=== PATIENT | male | born 1945 | race Caucasian/White ===

== ENCOUNTER → 2017-01-07 | Outpatient (CLI) | payer OTHER ==
--- NOTE | 2017-01-08 05:56 | ECHOF ---
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 This was a technically adequate study. LV size, wall thickness and systolic function are normal, with an EF greater than 55%. The right ventricle is normal in size. The right atrial size is normal. There is mild aortic valve sclerosis. There is no evidence of aortic regurgitation. Mild mitral annular calcification present. There is trace mitral regurgitation. There is minimal mitral valve prolapse. Mild tricuspid regurgitation present. There is no evidence of pulmonary hypertension. The right ventricular systolic pressure, as measured by Doppler, is 21.31mmHg. There is no pulmonic regurgitation present. There is no pericardial effusion. CONCLUSIONS -------- 1. LV size, wall thickness and systolic function are normal, with an EF greater than 55%. 2. There is no pericardial effusion. 3. There is mild aortic valve sclerosis. 4. Mild mitral annular calcification present. 5. There is trace mitral regurgitation. 6. There is minimal mitral valve prolapse. 7. Mild tricuspid regurgitation present. 8. There is no evidence of pulmonary hypertension. 9. The right ventricular systolic pressure, as measured by Doppler, is 21.31mmHg. 10. There is no pulmonic regurgitation present. PUBLIC WELFARE WORKER: Shena Song RDCS
== END | disposition home or self-care (01) ==
LOC: RADECHMAIN 12:57
PROVIDERS: ATTEND Family Medicine
DX: I08.1 Rheumatic disorders of both mitral and tricuspid valves (principal)
CPT/HCPCS: 93306

== ENCOUNTER 2022-05-11 23:59 | Emergency (ER) | payer MEDICARE, OTHER ==
[2022-05-12 00:07] VITALS: PULSE 57; RESP 18
--- NOTE | 2022-05-12 00:15 | ED ---
General Adult HPI - General Chief complaint: Altered Mental Status Stated complaint: Altered Mental Time Seen by Provider: 05/12/22 00:02 Source: patient Mode of arrival: EMS Limitations: altered mental status - History of Present Illness Initial comments: Dictation was produced using playnik dictation software. please excuse any grammatical, word or spelling errors. Chief Complaint: 76-year-old male past medical history dyslipidemia, hypertension and PTSD presents to emergency department for altered mental status. History of Present Illness: 76-year-old male is brought in by EMS for confusion. Patient was brought in from home. Some clinical called EMS. According to nurse received report from EMS is been confused. He has been showing any signs of a symmetrical neurologic deficits. Patient states that he knows that he's been confused for the last couple of days. EMS reported that patient was having repetitive speech. Patient has any headache. Denies any pain complaints whatsoever. No numbness and paresthesias to the arms or legs. Denies any recent falls. The ROS documented in this emergency department record has been reviewed and confirmed by me. Those systems with pertinent positive or negative responses have been documented in the HPI. All other systems are other negative and/or noncontributory. PHYSICAL EXAM: General Impression: Alert and oriented x3, not in acute distress HEENT: Normocephalic atraumatic, extra-ocular movements intact, pupils equal and reactive to light bilaterally, mucous membranes moist. Cardiovascular: Heart regular rate and rhythm Chest: Able to complete full sentences, no retractions, no tachypnea Abdomen: abdomen soft, non-tender, non-distended, no organomegaly Musculoskeletal: Pulses present and equal in all extremities, no peripheral edema Motor: no focal deficits noted Neurological: CN II-XII grossly intact, no focal motor or sensory deficits noted, NIH 0 Skin: Intact with no visualized rashes Psych: Normal affect and mood ED course: 76-year-old male presents to emergency department for altered mental status. Physical examination is benign. Vital signs are stable. Computed tomography scan of the brain was obtained. Computed tomography scan results were reviewed with me by radiologist showing subarachnoid acute hemorrhage in the right temporal parietal lobe. This is concerning for traumatic brain injury. More history was obtained from patient at the bedside 1:00 AM states that 2 days ago he did hit the right side of his head in the garage. Did not report any loss of consciousness. Patient does take Xarelto. Denies any headache at the bedside is stable appearing. Pending lab evaluation. Spoke with Magaly Garcia. Neuro trauma was notified. Spoke with Dr. Marroquin of the ED at [place] and also Dr. Jones of trauma or willing to accept the patient. They did not feel the patient needed anticoagulation reversal. Considering that trauma was 2 days ago and patient stable and well-appearing. Patient is agreeable to disposition. Patient will be transferred to [facility]. EKG interpretation: Ventricular rate 77, sinus bradycardia,. 173, care is 12, QTc 447. No NV prolongation, no QTC prolongation, no ST or T-wave changes noted. No old EKG for comparison. Overall, this EKG is unremarkable - Related Data Home Medications Medication Instructions Recorded Confirmed Aspirin EC [Ecotrin Low Dose] 81 mg PO DAILY 01/03/15 01/03/15 Multivitamin [Men's Multi-Vitamin] 1 each PO DAILY 01/03/15 01/03/15 Pravastatin Sodium [Pravachol] 80 mg PO DAILY 01/03/15 01/03/15 atenoloL [Tenormin] 25 mg PO DAILY 01/03/15 01/03/15 lisinopriL [Zestril] 10 mg PO DAILY 01/03/15 01/03/15 Previous Rx's Medication Instructions Recorded LORazepam [Ativan] 0.5 mg PO TID PRN #30 tab 01/04/15 Rivaroxaban [Xarelto] 20 mg PO W/SUPPER #30 tab 01/04/15 Allergies Allergy/AdvReac Type Severity Reaction Status Date / Time Sulfa (Sulfonamide AdvReac Rash/Hives Verified 05/12/22 00:07 Antibiotics) Review of Systems ROS Statement: Those systems with pertinent positive or pertinent negative responses have been documented in the HPI. ROS Other: All systems not noted in ROS Statement are negative. Past Medical History Past Medical History: Hyperlipidemia, Hypertension Additional Past Medical History / Comment(s): 01-03-15 NEW ONSET AFIB, KIDNEY STONES,DIVERTICULITIS, NOSE BROKEN TWICE, COLLARBONE BROKEN X2, LT HAND BROKEN, BOWEL OBSTRUCTION. STENT LAD. History of Any Multi-Drug Resistant Organisms: None Reported Past Surgical History: Adenoidectomy, Heart Catheterization With Stent, Tonsillectomy Additional Past Surgical History / Comment(s): LT KIDNEY INURY(TORE KIDNEY IN FALL) Past Anesthesia/Blood Transfusion Reactions: No Reported Reaction Date of Last Stent Placement:: 06-05-01 Past Psychological History: No Psychological Hx Reported Past Alcohol Use History: Daily Past Drug Use History: None Reported - Past Family History Father Additional Family Medical History / Comment(s): AT AGE 88 FROM [place] Mother Family Medical History: Cancer, Diabetes Mellitus Additional Family Medical History / Comment(s): COLON CANCER, PACEMAKER, FALLS BROKE VERTEBRE IN NECK General Exam Limitations: altered mental status Course Vital Signs 05/12/22 00:04 Temperature 98.2 F Pulse Rate 57 L Respiratory 18 Rate Blood Pressure 137/86 O2 Sat by Pulse 99 Oximetry Medical Decision Making - Lab Data Result diagrams: 05/12/22 00:50 Lab Results 05/12/22 05/12/22 Range/Units 00:50 01:05 WBC 7.0 (3.8-10.6) k/uL RBC 3.89 L (4.30-5.90) m/uL Hgb 12.6 L (13.0-17.5) gm/dL Hct 38.0 L (39.0-53.0) % MCV 97.8 (80.0-100.0) fL MCH 32.4 (25.0-35.0) pg MCHC 33.1 (31.0-37.0) g/dL RDW 12.5 (11.5-15.5) % MPV 11.4 Urine Color Colorless Urine Appearance Clear (Clear) Urine pH 6.0 (5.0-8.0) Ur Specific [place] 1.004 (1.001-1.035) Urine Protein Negative (Negative) Urine Glucose (UA) Negative (Negative) Urine Ketones Negative (Negative) Urine Blood Negative (Negative) Urine Nitrite Negative (Negative) Urine Bilirubin Negative (Negative) Urine Urobilinogen <2.0 (<2.0) mg/dL Ur Leukocyte Esterase Negative (Negative) Critical Care Time Critical Care Time: Yes Total Critical Care Time: 33 Disposition Clinical Impression: Traumatic subarachnoid hemorrhage Disposition: OTHER INSTITUTION NOT DEFINED Condition: Serious Referrals: Neal Pham DO [Primary Care Provider] - 1-2 days Time of Disposition: 01:19 - Out of Hospital Transfer - Req. Specs Out of Hospital Transfer - Requested Specifics: Other Emergency Center ([facility])
--- NOTE | 2022-05-12 00:55 | CT ---
EXAMINATION TYPE: CT brain wo con DATE OF EXAM: 05/12/2022 COMPARISON: None HISTORY: ams CT DLP: 1090.1 mGycm Automated exposure control for dose reduction was used. There is some diffuse subarachnoid hemorrhage in the right posterior parietal lobe. There is no mass effect nor midline shift. Ventricles have normal size. Sella turcica is normal. Calvarium is intact. IMPRESSION: There is subarachnoid acute hemorrhage in the right temporoparietal lobe. Origin of the hemorrhage is not clear. The hemorrhage likely not related to aneurysm since there is no central involvement. This could be a traumatic hemorrhage. No evidence of subdural or epidural hemorrhage. Exam was discussed with emergency room attending staff at 1:00 AM.
[2022-05-12 01:09] LABS: Appearance,Urine Clear (Clear); Bilirubin,Urine Negative (Negative); Blood,Urine Negative (Negative); Color,Urine Colorless; Glucose,Urine (UA) Negative (Negative); Ketones,Urine Negative (Negative); Leukocyte Esterase,Urine Negative (Negative); Nitrite,Urine Negative (Negative); Protein,Urine Negative (Negative); Specific Gravity,Urine 1.004 (1.001-1.035); Urobilinogen,Urine <2.0 mg/dL (<2.0)
[2022-05-12 01:14] LABS: Basophils # (A) 0.1 k/uL (0-0.2); Basophils % (A) 1 %; Eosinophils # (A) 0.2 k/uL (0-0.7); Eosinophils % (A) 2 %; HGB 12.6 gm/dL (13.0-17.5); Lymphocytes # (A) 1.3 k/uL (1.0-4.8); Lymphocytes % (A) 18 %; MCH 32.4 pg (25.0-35.0); MCHC 33.1 g/dL (31.0-37.0); MCV 97.8 fL (80.0-100.0); Mean Platelet Volume 11.4; Monocytes # (A) 0.4 k/uL (0-1.0); Monocytes % (A) 6 %; Neutrophils % (A) 71 %; Platelet Count 122 k/uL (150-450); RBC 3.89 m/uL (4.30-5.90); RDW 12.5 % (11.5-15.5)
[2022-05-12 01:22] LABS: Partial Thromboplastin Time 28.5 sec (22.0-30.0); Prothrombin Time 11.2 sec (9.0-12.0)
[2022-05-12 01:27] LABS: Large Platelets Present
[2022-05-12 01:29] LABS: Calcium 8.7 mg/dL (8.4-10.2); Magnesium 2.3 mg/dL (1.6-2.3); Potassium 4.2 mmol/L (3.5-5.1)
[2022-05-12 01:46] VITALS: BP 98/54; TEMP 97.9
== END 2022-05-12 01:50 | disposition other institution (70) ==
LOC: EC 23:59
DX: S06.6X0A Traumatic subarachnoid hemorrhage without loss of consciousness, initial encounter (principal); R00.1 Bradycardia, unspecified; E78.5 Hyperlipidemia, unspecified; I10 Essential (primary) hypertension; Z20.822 Contact with and (suspected) exposure to COVID-19; Z79.899 Other long term (current) drug therapy; Z88.2 Allergy status to sulfonamides; W22.8XXA Striking against or struck by other objects, initial encounter; Y92.59 Other trade areas as the place of occurrence of the external cause
CPT/HCPCS: 36415; 70450; 80048; 81003; 83735; 85025; 85610; 85730; 87635; 93005; 99291

== ENCOUNTER → 2023-02-22 | Outpatient (CLI) | payer OTHER ==
--- NOTE | 2023-02-22 08:35 | MM ---
Reason for Exam: Clinical finding. Baseline mammogram. Indicated Problems: Pain of the left side (Focal) for 3 Month(s). Prior Study Comparison: Patient's first Mammogram. Tissue Density: There are scattered fibroglandular densities. Findings: Analyzed By CAD. There is flame-shaped subareolar density asymmetrically on the left compatible with mild gynecomastia. Small axillary tail lymph nodes noted on the right. No significant mass, suspicious microcalcification, or other discrete abnormality is seen. Overall Assessment: Incomplete: need additional imaging evaluation, BI-RAD 0 Management: Diagnostic Breast Ultrasound of the left breast. Particular attention laterally given abnormal outside CT findings per the patient. Electronically signed and approved by: Lila Evans M.D. Radiologist
--- NOTE | 2023-02-22 09:34 | USB ---
Reason for Exam: Clinical finding. Technique: Method: Whole Breast Handheld. Findings: The whole breast of the left breast, the axilla of both breasts and the retroareolar of both breasts were scanned. A complete US of all four quadrants of the breast, axilla, and retro-areolar region were reviewed. Comparison is to the contralateral right subareolar region. On the left, there is mild subareolar gynecomastia demonstrated. Otherwise, no solid or cystic lesion. No axillary lymphadenopathy. Overall Assessment: Benign, BI-RAD 2 Management: Clinical Management of the left breast. Further clinical management of mild benign left-sided gynecomastia. Additional further clinical management of any abnormality detected on outside CT. That exam is not available for review at the time of this appointment. Results were given to the patient verbally at the time of exam. Electronically signed and approved by: Lila Evans M.D. Radiologist
== END | disposition home or self-care (01) ==
LOC: RADMAMWWP 08:05
DX: N63.42 Unspecified lump in left breast, subareolar (principal); N63.31 Unspecified lump in axillary tail of the right breast
CPT/HCPCS: 77062; 77066

== ENCOUNTER 2023-07-22 10:38 | Emergency (ER) | payer OTHER ==
[2023-07-22 11:04] VITALS: RESP 18; TEMP 98
[2023-07-22 11:44] LABS: Basophils # (A) 0.1 k/uL (0-0.2); Basophils % (A) 1 %; Eosinophils # (A) 0.1 k/uL (0-0.7); Eosinophils % (A) 1 %; HCT 42.7 % (39.0-53.0); HGB 14.3 gm/dL (13.0-17.5); Lymphocytes # (A) 1.1 k/uL (1.0-4.8); Lymphocytes % (A) 13 %; MCH 32.6 pg (25.0-35.0); MCHC 33.5 g/dL (31.0-37.0); MCV 97.3 fL (80.0-100.0); Mean Platelet Volume 10.3; Monocytes # (A) 0.5 k/uL (0-1.0); Monocytes % (A) 6 %; Neutrophils # (A) 6.9 k/uL (1.3-7.7); Neutrophils % (A) 77 %; Platelet Count 132 k/uL (150-450); RBC 4.39 m/uL (4.30-5.90); RDW 13.4 % (11.5-15.5); WBC 8.9 k/uL (3.8-10.6)
[2023-07-22 11:48] LABS: ALT 26 U/L (4-49); AST 37 U/L (17-59); African American GFR (CKD) 73 (>60 ml/min/1.73 sqM); Albumin 4.7 g/dL (3.5-5.0); Alkaline Phosphatase 65 U/L (38-126); Anion Gap 15 mmol/L; Blood Urea Nitrogen 23 mg/dL (9-20); Calcium 9.4 mg/dL (8.4-10.2); Carbon Dioxide 21 mmol/L (22-30); Chloride 103 mmol/L (98-107); Glucose 79 mg/dL (74-99); Non-African American GFR(CKD) 64 (>60 ml/min/1.73 sqM); Potassium 4.5 mmol/L (3.5-5.1); Sodium 139 mmol/L (137-145); Total Bilirubin 0.7 mg/dL (0.2-1.3); Total Protein 8.4 g/dL (6.3-8.2)
--- NOTE | 2023-07-22 11:51 | XR ---
EXAMINATION TYPE: XR chest 2V DATE OF EXAM: 07/22/2023 COMPARISON: 01/04/2015 HISTORY: 77-year-old male with chest pain TECHNIQUE: PA and lateral views FINDINGS: Heart normal size. Aorta and pulmonary vasculature within normal limits. Old healed fracture deformit y distal right clavicle. Mild biapical pleural-parenchymal scarring, increased from 2015. Strandy ate lectasis at the lung bases. Hyperinflation. No consolidation or pleural effusion. PFO closure device. IMPRESSION: Hyperinflation may related to depth of inspiration underlying emphysema. No definite acute process.
[2023-07-22 11:54] LABS: INR 0.9 (<1.2); Partial Thromboplastin Time 23.8 sec (22.0-30.0); Prothrombin Time 10.3 sec (10.0-12.5)
--- NOTE | 2023-07-22 12:03 | ED ---
General Adult HPI - General Chief complaint: Recheck/Abnormal Lab/Rx Stated complaint: abnormal ekg-sent from drs Time Seen by Provider: 07/22/23 11:04 Source: patient, RN notes reviewed Mode of arrival: ambulatory Limitations: no limitations - History of Present Illness Initial comments: 77-year-old male presents emergency Department from PCPs office for evaluation of hyperkalemia. Patient states that he went and had some recent labs department today for redraw and stated that his potassium was high. I told him his EKG was abnormal but he denies any chest pain he states he had some left arm pain because he was very nervous and states he was shaking he again states he has no chest pain. Patient denies fevers chills patient offers no other com plaints. - Related Data Home Medications Medication Instructions Recorded Confirmed Aspirin EC [Ecotrin Low Dose] 81 mg PO DAILY 01/03/15 01/03/15 Multivitamin [Men's Multi-Vitamin] 1 each PO DAILY 01/03/15 01/03/15 Pravastatin Sodium [Pravachol] 80 mg PO DAILY 01/03/15 01/03/15 atenoloL [Tenormin] 25 mg PO DAILY 01/03/15 01/03/15 lisinopriL [Zestril] 10 mg PO DAILY 01/03/15 01/03/15 Previous Rx's Medication Instructions Recorded LORazepam [Ativan] 0.5 mg PO TID PRN #30 tab 01/04/15 Rivaroxaban [Xarelto] 20 mg PO W/SUPPER #30 tab 01/04/15 Allergies Allergy/AdvReac Type Severity Reaction Status Date / Time Sulfa (Sulfonamide AdvReac Rash/Hives Verified 07/22/23 10:59 Antibiotics) Review of Systems ROS Statement: Those systems with pertinent positive or pertinent negative responses have been documented in the HPI. ROS Other: All systems not noted in ROS Statement are negative. Past Medical History Past Medical History: Hyperlipidemia, Hypertension Additional Past Medical History / Comment(s): 01-03-15 NEW ONSET AFIB, KIDNEY STONES,DIVERTICULITIS, NOSE BROKEN TWICE, COLLARBONE BROKEN X2, LT HAND BROKEN, BOWEL OBSTRUCTION. STENT LAD. History of Any Multi-Drug Resistant Organisms: None Reported Past Surgical History: Adenoidectomy, Heart Catheterization With Stent, Tonsillectomy Additional Past Surgical History / Comment(s): LT KIDNEY INURY(TORE KIDNEY IN FALL) Past Anesthesia/Blood Transfusion Reactions: No Reported Reaction Date of Last Stent Placement:: 06-05-01 Past Psychological History: No Psychological Hx Reported Smoking Status: Never smoker Past Alcohol Use History: Daily Past Drug Use History: None Reported - Past Family History Father Additional Family Medical History / Comment(s): AT AGE 88 FROM [place] Mother Family Medical History: Cancer, Diabetes Mellitus Additional Family Medical History / Comment(s): COLON CANCER, PACEMAKER, FALLS BROKE VERTEBRE IN NECK General Exam Limitations: no limitations General appearance: alert, in no apparent distress Head exam: Present: atraumatic, normocephalic, normal inspection Eye exam: Present: normal appearance, PERRL, EOMI. Absent: scleral icterus, conjunctival injection, periorbital swelling ENT exam: Present: normal exam, normal oropharynx, mucous membranes moist Neck exam: Present: normal inspection, full ROM. Absent: tenderness, meningism us, lymphadenopathy Respiratory exam: Present: normal lung sounds bilaterally. Absent: respiratory distress, wheezes, rales, rhonchi, stridor Cardiovascular Exam: Present: regular rate, normal rhythm, normal heart sounds. Absent: systolic murmur, diastolic murmur, rubs, gallop, clicks GI/Abdominal exam: Present: soft, normal bowel sounds. Absent: distended, tenderness, guarding, rebound, rigid Neurological exam: Present: alert, oriented X3 Skin exam: Present: warm, dry, intact, normal color. Absent: rash Course Vital Signs 07/22/23 07/22/23 10:57 12:51 Temperature 98 F Pulse Rate 60 78 Respiratory 18 18 Rate Blood Pressure 171/80 124/75 O2 Sat by Pulse 98 98 Oximetry EKG Findings - EKG Comments: EKG Findings:: EKG performed at 11:19 sinus bradycardia with rate of 59 PA 167 QRS 92 QT/QTC 423/422 - EKG Results: EKG: interpreted by JOSEPH Medical Decision Making - Medical Decision Making Was pt. sent in by a medical professional or institution (, PA, BURGLAR ALARM INSTALLER, urgent care, hospital, or usp...) When possible be specific @ -PCP Did you speak to anyone other than the patient for history (EMS, parent, family, police, friend...)? What history was obtained from this source @ -No Did you review nursing and triage notes (agree or disagree)? Why? @ -I reviewed and agree with nursing and triage notes Were old charts reviewed (outside hosp., previous admission, EMS record, old EKG, old radiological studies, urgent care reports/EKG's, usp records)? Report findings @ -No old charts were reviewed Differential Diagnosis (chest pain, altered mental status, abdominal pain women, abdominal pain men, vaginal bleeding, weakness, fever, dyspnea, syncope, headache, dizziness, GI bleed, back pain, seizure, CVA, palpatations, mental health, musculoskeletal)? @ -Abnormal EKG, hyperkalemia EKG interpreted by me (3pts min.). @ -As above X-rays interpreted by me (1pt min.). @ -Chest x-ray shows no acute process CT interpreted by me (1pt min.). @ -None done U/S interpreted by me (1pt. min.). @ -None done What testing was considered but not performed or refused? (CT, X-rays, U/S, labs)? Why? @ -[None] What meds were considered but not given or refused? Why? @ -[None] Did you discuss the management of the patient with other professionals (professionals i.e. , PA, BURGLAR ALARM INSTALLER, lab, RT, psych nurse, social work case manager, collet making machine operator, teacher, delinquency prevention officer, bottle caser)? Give summary @ -[No] Was smoking cessation discussed for >3mins.? @ -[No] Was critical care preformed (if so, how long)? @ -[No] Were there social determinants of health that impacted care today? How? (Homelessness, low income, unemployed, alcoholism, drug addiction, transportation, low edu. Level, literacy, decrease access to med. care, custodial, rehab)? @ -[No] Was there de-escalation of care discussed even if they declined (Discuss DNR or withdrawal of care, Hospice)? DNR status @ -[No] What co-morbidities impacted this encounter? (DM, HTN, Smoking, COPD, CAD, Cancer, CVA, ARF, Chemo, Hep., AIDS, mental health diagnosis, sleep apnea, morbid obesity)? @ -[None] Was patient admitted / discharged? Hospital course, mention meds given and route, prescriptions, significant lab abnormalities, going to OR and other pertinent info. @ -[Discharged laboratory studies unremarkable patient is asymptomatic patient's prior abdominal may have been hemolyzed causing falls hyperkalemia. Patient will be discharged in stable condition] Undiagnosed new problem with uncertain prognosis? @ -[No] Drug Therapy requiring intensive monitoring for toxicity (Heparin, Nitro, Insulin, Cardizem)? @ -[No] Were any procedures done? @ -[No] Diagnosis/symptom? @ -[Recheck labs, well check] Acute, or Chronic, or Acute on Chronic? @ -[Acute Uncomplicated (without systemic symptoms) or Complicated (systemic symptoms)? @ -[Uncomplicated] Side effects of treatment? @ -[No] Exacerbation, Progression, or Severe Exacerbation? @ -[No] Poses a threat to life or bodily function? How? (Chest pain, USA, DE, pneumonia, PE, COPD, DKA, ARF, appy, cholecystitis, CVA, Diverticulitis, Homicidal, Suicidal, threat to staff... and all critical care pts) @ -[No] - Lab Data Result diagrams: 07/22/23 11:14 07/22/23 11:14 Lab Results 07/22/23 07/22/23 07/22/23 Range/Units 11:14 11:14 11:14 WBC 8.9 (3.8-10.6) k/uL RBC 4.39 (4.30-5.90) m/uL Hgb 14.3 (13.0-17.5) gm/dL Hct 42.7 (39.0-53.0) % MCV 97.3 (80.0-100.0) fL MCH 32.6 (25.0-35.0) pg MCHC 33.5 (31.0-37.0) g/dL RDW 13.4 (11.5-15.5) % Plt Count 132 L (150-450) k/uL MPV 10.3 Neutrophils % 77 % Lymphocytes % 13 % Monocytes % 6 % Eosinophils % 1 % Basophils % 1 % Neutrophils # 6.9 (1.3-7.7) k/uL Lymphocytes # 1.1 (1.0-4.8) k/uL Monocytes # 0.5 (0-1.0) k/uL Eosinophils # 0.1 (0-0.7) k/uL Basophils # 0.1 (0-0.2) k/uL PT 10.3 (10.0-12.5) sec INR 0.9 (<1.2) APTT 23.8 (22.0-30.0) sec Sodium 139 (137-145) mmol/L Potassium 4.5 (3.5-5.1) mmol/L Chloride 103 (98-107) mmol/L Carbon Dioxide 21 L (22-30) mmol/L Anion Gap 15 mmol/L BUN 23 H (9-20) mg/dL Creatinine 1.13 (0.66-1.25) mg/dL Est GFR (CKD-EPI)AfAm 73 (>60 ml/min/1.73 sqM) Est GFR (CKD-EPI)NonAf 64 (>60 ml/min/1.73 sqM) Glucose 79 (74-99) mg/dL Calcium 9.4 (8.4-10.2) mg/dL Magnesium 2.0 (1.6-2.3) mg/dL Total Bilirubin 0.7 (0.2-1.3) mg/dL AST 37 (17-59) U/L ALT 26 (4-49) U/L Alkaline Phosphatase 65 (38-126) U/L Troponin I (0.000-0.034) ng/mL Total Protein 8.4 H (6.3-8.2) g/dL Albumin 4.7 (3.5-5.0) g/dL 07/22/23 Range/Units 11:14 WBC (3.8-10.6) k/uL RBC (4.30-5.90) m/uL Hgb (13.0-17.5) gm/dL Hct (39.0-53.0) % MCV (80.0-100.0) fL MCH (25.0-35.0) pg MCHC (31.0-37.0) g/dL RDW (11.5-15.5) % Plt Count (150-450) k/uL MPV Neutrophils % % Lymphocytes % % Monocytes % % Eosinophils % % Basophils % % Neutrophils # (1.3-7.7) k/uL Lymphocytes # (1.0-4.8) k/uL Monocytes # (0-1.0) k/uL Eosinophils # (0-0.7) k/uL Basophils # (0-0.2) k/uL PT (10.0-12.5) sec INR (<1.2) APTT (22.0-30.0) sec Sodium (137-145) mmol/L Potassium (3.5-5.1) mmol/L Chloride (98-107) mmol/L Carbon Dioxide (22-30) mmol/L Anion Gap mmol/L BUN (9-20) mg/dL Creatinine (0.66-1.25) mg/dL Est GFR (CKD-EPI)AfAm (>60 ml/min/1.73 sqM) Est GFR (CKD-EPI)NonAf (>60 ml/min/1.73 sqM) Glucose (74-99) mg/dL Calcium (8.4-10.2) mg/dL Magnesium (1.6-2.3) mg/dL Total Bilirubin (0.2-1.3) mg/dL AST (17-59) U/L ALT (4-49) U/L Alkaline Phosphatase (38-126) U/L Troponin I <0.012 (0.000-0.034) ng/mL Total Protein (6.3-8.2) g/dL Albumin (3.5-5.0) g/dL Disposition Clinical Impression: Laboratory test, Well adult health check Disposition: HOME SELF-CARE Condition: Stable Additional Instructions: Please return to the Emergency Department if symptoms worsen or any other concerns. Is patient prescribed a controlled substance at d/c from ED?: No Referrals: [facility],Clinic [Primary Care Provider] - 1-2 days Time of Disposition: 12:37
[2023-07-22 13:09] VITALS: BP 124/75; PULSE 78
== END 2023-07-22 12:53 | disposition home or self-care (01) ==
LOC: EC 10:38
DX: Z00.00 Encounter for general adult medical examination without abnormal findings (principal); R00.1 Bradycardia, unspecified; E78.5 Hyperlipidemia, unspecified; I10 Essential (primary) hypertension; I48.91 Unspecified atrial fibrillation; Z88.2 Allergy status to sulfonamides; Z79.899 Other long term (current) drug therapy; Z79.82 Long term (current) use of aspirin
CPT/HCPCS: 36415; 71046; 80053; 83735; 84484; 85025; 85610; 85730; 93005; 99285

== ENCOUNTER 2023-10-10 09:44 | Emergency (ER) | payer OTHER ==
[2023-10-10 10:22] LABS: Basophils % (A) 0 %; Eosinophils % (A) 0 %; HCT 45.4 % (39.0-53.0); HGB 15.1 gm/dL (13.0-17.5); Lymphocytes # (A) 0.7 k/uL (1.0-4.8); Lymphocytes % (A) 9 %; MCH 33.1 pg (25.0-35.0); MCHC 33.1 g/dL (31.0-37.0); MCV 99.8 fL (80.0-100.0); Mean Platelet Volume 10.6; Monocytes # (A) 0.5 k/uL (0-1.0); Monocytes % (A) 6 %; Neutrophils # (A) 6.5 k/uL (1.3-7.7); Neutrophils % (A) 83 %; Platelet Count 122 k/uL (150-450); RBC 4.55 m/uL (4.30-5.90); WBC 7.8 k/uL (3.8-10.6)
[2023-10-10 10:33] LABS: INR 0.9 (<1.2); Partial Thromboplastin Time 23.1 sec (22.0-30.0); Prothrombin Time 10.5 sec (10.0-12.5)
[2023-10-10 10:46] LABS: ALT 29 U/L (4-49); AST 33 U/L (17-59); African American GFR (CKD) 74 (>60 ml/min/1.73 sqM); Albumin 4.9 g/dL (3.5-5.0); Alkaline Phosphatase 58 U/L (38-126); Anion Gap 12 mmol/L; Blood Urea Nitrogen 25 mg/dL (9-20); Calcium 9.6 mg/dL (8.4-10.2); Carbon Dioxide 22 mmol/L (22-30); Chloride 105 mmol/L (98-107); Glucose 131 mg/dL (74-99); Magnesium 1.9 mg/dL (1.6-2.3); Non-African American GFR(CKD) 64 (>60 ml/min/1.73 sqM); Potassium 4.7 mmol/L (3.5-5.1); Sodium 139 mmol/L (137-145); Total Bilirubin 1.2 mg/dL (0.2-1.3); Total Protein 8.5 g/dL (6.3-8.2)
--- NOTE | 2023-10-10 10:47 | ED ---
Syncope HPI - General Chief Complaint: Syncope Stated Complaint: fall-syncope Time Seen by Provider: 10/10/23 10:19 Source: patient, family, RN notes reviewed Mode of arrival: ambulatory Limitations: no limitations - History of Present Illness Initial Comments: This is a 78-year-old male who presents to the emergency department for a possible syncopal episode. States that he was in the kitchen last night on the phone, when he suddenly fell. The fall was not witnessed, his states that she was sleeping on the couch and as soon as she heard the fall, she went into the kitchen and found him on the ground. He was not unconscious or confused when she found him. This has happened to the patient before and is usually related to his blood pressure. Patient did not have any complaints prior to the episode and states that he essentially has no recollection of it. His states that they just got a new puppy and it is also possible that the puppy may have tripped him and he fell. His largest concern is the pain that he has along the left lower rib cage and lower back. He did hit the back of his head as well. Not taking any blood thinners. - Related Data Home Medications Medication Instructions Recorded Confirmed Aspirin EC [Ecotrin Low Dose] 81 mg PO DAILY 01/03/15 01/03/15 Multivitamin [Men's Multi-Vitamin] 1 each PO DAILY 01/03/15 01/03/15 Pravastatin Sodium [Pravachol] 80 mg PO DAILY 01/03/15 01/03/15 atenoloL [Tenormin] 25 mg PO DAILY 01/03/15 01/03/15 lisinopriL [Zestril] 10 mg PO DAILY 01/03/15 01/03/15 Previous Rx's Medication Instructions Recorded LORazepam [Ativan] 0.5 mg PO TID PRN #30 tab 01/04/15 Rivaroxaban [Xarelto] 20 mg PO W/SUPPER #30 tab 01/04/15 Lidocaine 5% Patch [Lidoderm 5% 1 patch TOPICAL DAILY PRN #30 patch 10/10/23 Patch] methocarbamoL [Robaxin-750] 1,500 mg PO TID PRN #30 tab 10/10/23 Allergies Allergy/AdvReac Type Severity Reaction Status Date / Time Sulfa (Sulfonamide AdvReac Rash/Hives Verified 03/04/24 09:48 Antibiotics) Review of Systems ROS Statement: Those systems with pertinent positive or pertinent negative responses have been documented in the HPI. ROS Other: All systems not noted in ROS Statement are negative. Past Medical History Past Medical History: Hyperlipidemia, Hypertension Additional Past Medical History / Comment(s): 01-03-15 NEW ONSET AFIB, KIDNEY STONES,DIVERTICULITIS, NOSE BROKEN TWICE, COLLARBONE BROKEN X2, LT HAND BROKEN, BOWEL OBSTRUCTION. STENT LAD. History of Any Multi-Drug Resistant Organisms: None Reported Past Surgical History: Adenoidectomy, Heart Catheterization With Stent, Tonsillectomy Additional Past Surgical History / Comment(s): LT KIDNEY INURY(TORE KIDNEY IN FALL) Past Anesthesia/Blood Transfusion Reactions: No Reported Reaction Date of Last Stent Placement:: 06-05-01 Past Psychological History: No Psychological Hx Reported Smoking Status: Never smoker Past Alcohol Use History: Daily Past Drug Use History: None Reported - Past Family History Father Additional Family Medical History / Comment(s): AT AGE 88 FROM [place] Mother Family Medical History: Cancer, Diabetes Mellitus Additional Family Medical History / Comment(s): COLON CANCER, PACEMAKER, FALLS BROKE VERTEBRE IN NECK General Exam Limitations: no limitations General appearance: alert, in no apparent distress Head exam: Present: atraumatic, normocephalic, normal inspection Eye exam: Present: normal appearance, PERRL, EOMI. Absent: scleral icterus, conjunctival injection, periorbital swelling Respiratory exam: Present: normal lung sounds bilaterally, chest wall tenderness (Left lower rib cage). Absent: respiratory distress, wheezes, rales, rhonchi, stridor Cardiovascular Exam: Present: regular rate, normal rhythm, normal heart sounds. Absent: systolic murmur, diastolic murmur, rubs, gallop, clicks Neurological exam: Present: alert, oriented X3, CN II-XII intact Psychiatric exam: Present: normal affect, normal mood Skin exam: Present: warm, dry, intact, normal color. Absent: rash Course Vital Signs 10/10/23 10/10/23 10/10/23 09:45 11:28 12:32 Temperature 97.5 F L 97.4 F L Pulse Rate 80 58 L 64 Respiratory 20 16 18 Rate Blood Pressure 137/80 133/79 128/78 O2 Sat by Pulse 96 100 99 Oximetry Medical Decision Making - Medical Decision Making This is a 78 year old male who presents to the emergency department for a possible syncopal episode. Was pt. sent in by a medical professional or institution? @ -No Did you speak to anyone other than the patient for history? @ -His provided the information about the patient not being confused or unconscious when she found him. Did you review nursing and triage notes? @ -Yes, and I agree, it is accurate with regards to the patient's symptoms. Were old charts reviewed? @ -No Differential Diagnosis? @ -Differential Syncope: Valvular disease, hypertrophic cardiomyopathy, pulmonary embolism, tamponade, tachycardia, bradycardia, OR, hypovolemia, hemorrhage, dissection, anemia, intracranial hemorrhage, seizure, hypoglycemia, carbon monoxide poisoning, this is not meant to be an all-inclusive list. EKG interpreted by me (3pts min.)? @ -EKG interpreted by me demonstrating the following: Sinus bradycardia. Ventricular rate 58 bpm, OK interval 159 ms, QRS duration 86 ms, QTc 418 ms. X-rays interpreted by me (1pt min.)? @ -Chest x-ray obtained, my interpretation identifies no localized consolidations or infiltrates. X-ray of the left rib cage and lumbar spine obtained. My interpretation identifies no acute fractures. CT interpreted by me (1pt min.)? @ -Computed tomography scan of the brain and c-spine obtained. My interpretation identifies no evidence of an acute intracranial hemorrhage, skull fracture, or cervical spine fracture. U/S interpreted by me (1pt. min.)? @ -Not obtained What testing was considered but not performed? (CT, X-rays, U/S, labs)? Why? @ -None What meds were considered but not given? Why? @ -None Did you discuss the management of the patient with other professionals? @ -No Did you reconcile home meds? @ -No Was smoking cessation discussed for >3mins.? @ -No Was critical care preformed (if so, how long)? @ -No Were there social determinants of health that impacted care today? How? (Homelessness, low income, unemployed, alcoholism, drug addiction, transportation, low edu. Level, literacy, decrease access to med. care, custodial, rehab)? @ -No Was there de-escalation of care discussed even if they declined? (Discuss DNR or withdrawal of care, Hospice)? @ -No What co-morbidities impacted this encounter? (DM, HTN, Smoking, COPD, CAD, Cancer, CVA, Hep., AIDS, mental health diagnosis, sleep apnea, morbid obesity)? @ -HLD, HTN Was patient admitted / discharged? @ -Discharged. Lab work unremarkable aside from signs of mild dehydration. Chest x-ray and x-ray of the left rib cage and lumbar spine obtained revealing no acute process. CT scan of the brain and C-spine obtained revealing no acute findings. Discussed with patient that this does not rule out the possibility of a smaller or hairline rib fracture, and treatment would otherwise not be any different. His pain was well-managed in the emergency department he was also given a liter bolus of IV fluids. We did discuss obtaining orthostatics and a urinalysis, however the patient had felt much better and did not feel that this was necessary and was comfortable with discharge home at that point. Prescription for Robaxin and lidocaine patches provided with dosing instructions reviewed. Also advised alternating with ibuprofen and Tylenol. Patient advised to take several deep breaths an hour despite the pain to reduce the risk of developing a secondary pneumonia. Also advised close follow-up with his primary care provider. Patient discharged home in stable condition. Undiagnosed new problem with uncertain prognosis? @ -None Drug Therapy requiring intensive monitoring for toxicity (Heparin, Nitro, Insulin, Cardizem)? @ -None Were any procedures done? @ -None Diagnosis/symptom? @ -Fall, rib contusion Acute, or Chronic, or Acute on Chronic? @ -Acute Uncomplicated (without systemic symptoms) or Complicated (systemic symptoms)? @ -Uncomplicated Side effects of treatment? @ -None Exacerbation, Progression, or Severe Exacerbation] @ -Not applicable Poses a threat to life or bodily function? @ -No Return precautions reviewed in depth, the patient is instructed to return to the emergency department with any new, worsening, or concerning symptoms. Patient verbalized understanding. This case was discussed in detail with the attending ED physician, Dr. Kyle Presentation, findings, and treatment plan discussed in detail as well. - Lab Data Result diagrams: 10/10/23 10:10 10/10/23 10:10 Lab Results 10/10/23 10/10/23 10/10/23 Range/Units 10:10 10:10 10:10 WBC 7.8 (3.8-10.6) k/uL RBC 4.55 (4.30-5.90) m/uL Hgb 15.1 (13.0-17.5) gm/dL Hct 45.4 (39.0-53.0) % MCV 99.8 (80.0-100.0) fL MCH 33.1 (25.0-35.0) pg MCHC 33.1 (31.0-37.0) g/dL RDW 13.0 (11.5-15.5) % Plt Count 122 L (150-450) k/uL MPV 10.6 Neutrophils % 83 % Lymphocytes % 9 % Monocytes % 6 % Eosinophils % 0 % Basophils % 0 % Neutrophils # 6.5 (1.3-7.7) k/uL Lymphocytes # 0.7 L (1.0-4.8) k/uL Monocytes # 0.5 (0-1.0) k/uL Eosinophils # 0.0 (0-0.7) k/uL Basophils # 0.0 (0-0.2) k/uL PT 10.5 (10.0-12.5) sec INR 0.9 (<1.2) APTT 23.1 (22.0-30.0) sec Sodium 139 (137-145) mmol/L Potassium 4.7 (3.5-5.1) mmol/L Chloride 105 (98-107) mmol/L Carbon Dioxide 22 (22-30) mmol/L Anion Gap 12 mmol/L BUN 25 H (9-20) mg/dL Creatinine 1.11 (0.66-1.25) mg/dL Est GFR (CKD-EPI)AfAm 74 (>60 ml/min/1.73 sqM) Est GFR (CKD-EPI)NonAf 64 (>60 ml/min/1.73 sqM) Glucose 131 H (74-99) mg/dL Calcium 9.6 (8.4-10.2) mg/dL Magnesium 1.9 (1.6-2.3) mg/dL Total Bilirubin 1.2 (0.2-1.3) mg/dL AST 33 (17-59) U/L ALT 29 (4-49) U/L Alkaline Phosphatase 58 (38-126) U/L Troponin I (0.000-0.034) ng/mL Total Protein 8.5 H (6.3-8.2) g/dL Albumin 4.9 (3.5-5.0) g/dL 10/10/23 Range/Units 10:10 WBC (3.8-10.6) k/uL RBC (4.30-5.90) m/uL Hgb (13.0-17.5) gm/dL Hct (39.0-53.0) % MCV (80.0-100.0) fL MCH (25.0-35.0) pg MCHC (31.0-37.0) g/dL RDW (11.5-15.5) % Plt Count (150-450) k/uL MPV Neutrophils % % Lymphocytes % % Monocytes % % Eosinophils % % Basophils % % Neutrophils # (1.3-7.7) k/uL Lymphocytes # (1.0-4.8) k/uL Monocytes # (0-1.0) k/uL Eosinophils # (0-0.7) k/uL Basophils # (0-0.2) k/uL PT (10.0-12.5) sec INR (<1.2) APTT (22.0-30.0) sec Sodium (137-145) mmol/L Potassium (3.5-5.1) mmol/L Chloride (98-107) mmol/L Carbon Dioxide (22-30) mmol/L Anion Gap mmol/L BUN (9-20) mg/dL Creatinine (0.66-1.25) mg/dL Est GFR (CKD-EPI)AfAm (>60 ml/min/1.73 sqM) Est GFR (CKD-EPI)NonAf (>60 ml/min/1.73 sqM) Glucose (74-99) mg/dL Calcium (8.4-10.2) mg/dL Magnesium (1.6-2.3) mg/dL Total Bilirubin (0.2-1.3) mg/dL AST (17-59) U/L ALT (4-49) U/L Alkaline Phosphatase (38-126) U/L Troponin I <0.012 (0.000-0.034) ng/mL Total Protein (6.3-8.2) g/dL Albumin (3.5-5.0) g/dL - Radiology Data Radiology results: report reviewed, image reviewed Disposition Clinical Impression: Fall, Contusion of rib on left side Disposition: HOME SELF-CARE Instructions (If sedation given, give patient instructions): Rib Contusion (ED) Additional Instructions: Return to the emergency department with any new, worsening, or concerning symptoms. Alternate with ibuprofen and Tylenol as needed for pain relief. You can take the Robaxin as 1-2 tablets up to 3-4 times daily. Be aware that the Robaxin may make you drowsy and you should avoid driving or operating machinery when taking them. You can also apply the lidocaine patches daily. Make sure you take several deep breaths an hour despite the pain to reduce the risk of de veloping a secondary pneumonia. Follow up with your primary care provider in 1- 2 days. Prescriptions: Lidocaine 5% Patch [Lidoderm 5% Patch] 1 patch TOPICAL DAILY PRN #30 patch PRN Reason: Pain methocarbamoL [Robaxin-750] 1,500 mg PO TID PRN #30 tab PRN Reason: Pain Is patient prescribed a controlled substance at d/c from ED?: No Referrals: [facility],Clinic [Primary Care Provider] - 1-2 days Time of Disposition: 12:14
--- NOTE | 2023-10-10 11:08 | CT ---
EXAMINATION TYPE: CT brain riaz dumont con DATE OF EXAM: 10/10/2023 COMPARISON: None available. HISTORY: Syncope. CT DLP: 1333.4 mGycm Automated exposure control for dose reduction was used. TECHNIQUE: CT scan of the head and cervical spine are performed without contrast. FINDINGS: There is no acute intracranial hemorrhage, mass effect, or midline shift identified. Mild hypoattenuation in the periventricular white matter is likely related to chronic ischemic small vess el change. There is no acute major vessel infarct. The ventricles and sulci are within normal limits in size. The globes are intact and the visualized sinuses are clear. Cervical spine is visualized in its entirety from C1 through upper thoracic levels and demonstrates s atisfactory alignment without evidence of acute fracture or dislocation. Prevertebral soft tissue ap pears within normal limits. The C1-C2 articulation is unremarkable. There are multilevel degenerati ve disc and facet changes which range from mild to moderate as well as uncovertebral joint changes. IMPRESSION: 1. No acute intracranial process with chronic changes as above. 2. Multilevel degenerative changes within the spine with no acute osseous abnormalities.
--- NOTE | 2023-10-10 11:19 | XR ---
EXAMINATION TYPE: XR chest 2V DATE OF EXAM: 10/10/2023 COMPARISON: NONE HISTORY: Syncope. TECHNIQUE: Frontal and lateral views of the chest are obtained. FINDINGS: There is no focal air space opacity, pleural effusion, or pneumothorax seen. The cardiac silhouette size is within normal limits. The osseous structures are intact. IMPRESSION: No acute cardiopulmonary process.
--- NOTE | 2023-10-10 11:21 | XR ---
Left rib series. DATE: 10/10/2023. COMPARISON: None available. CLINICAL HISTORY: Fall with left rib pain. IMPRESSION: The lungs appear clear. The cardiac silhouette and pulmonary vessels are within normal limits. No displaced rib fractures are seen.
--- NOTE | 2023-10-10 11:23 | XR ---
Three-view lumbar spine. DATE: 10/10/2023. COMPARISON: None available. CLINICAL HISTORY: Low back pain after fall. FINDINGS: The vertebral bodies are well aligned without evidence of fracture, subluxation or dislocation. The vertebral body heights are maintained. There is mild multilevel degenerative disc changes throughout the spine with moderate degenerative di sc space narrowing at L4-5 and more significant degenerative disc space narrowing at L5-S1. Multilevel degenerative facet changes are also seen. There is question of calcifications overlying the lower pole of the left kidney which may represent s tones versus bowel contents. IMPRESSION: Multilevel degenerative changes with no acute osseous abnormalities.
[2023-10-10] MEDS: LIDOCAINE 4% PATCH TOPICAL ONE (11:33)
[2023-10-10] MEDS: MORPHINE SULFATE 4 MG/ML SYRINGE IVP STA (11:34)
[2023-10-10] MEDS: SODIUM CHLORIDE 0.9% 1,000 ML IV STA (11:34)
[2023-10-10] MEDS: KETOROLAC 15 MG/ML 1 ML VIAL IVP STA (11:34)
[2023-10-10 12:00] VITALS: TEMP 97.4
[2023-10-10 13:08] VITALS: BP 128/78; PULSE 64; RESP 18
== END 2023-10-10 12:34 | disposition home or self-care (01) ==
LOC: EC 09:44
DX: S20.212A Contusion of left front wall of thorax, initial encounter (principal); R00.1 Bradycardia, unspecified; I10 Essential (primary) hypertension; E78.5 Hyperlipidemia, unspecified; E86.0 Dehydration; Z79.82 Long term (current) use of aspirin; Z79.899 Other long term (current) drug therapy; Z88.2 Allergy status to sulfonamides; W01.0XXA Fall on same level from slipping, tripping and stumbling without subsequent striking against object, initial encounter
CPT/HCPCS: 36415; 93005; 80053; 83735; 84484; 85025; 85610; 85730; 72100; 71100; 71046; 72125; 70450; 99285; 96374; 96375; J2270; J1885

== ENCOUNTER → 2024-01-10 | Outpatient (CLI) | payer OTHER ==
--- NOTE | 2024-01-10 11:09 | US ---
EXAMINATION TYPE: US carotid duplex BILAT DATE OF EXAM: 01/10/2024 COMPARISON: US CLINICAL INDICATION: Male, 78 years old with history of R55 SYNCOPE AND COLLAPSE; Syncope TECHNIQUE: Carotid duplex ultrasound examination. Indirect Doppler criteria was utilized. FINDINGS: EXAM MEASUREMENTS: RIGHT: Peak Systolic Velocity (PSV) cm/sec ----- Right CCA: 64.5 ----- Right ICA: 64.5 ----- Right ECA: 98.2 ICA/CCA ratio: 1.0 RIGHT: End Diastole cm/sec ----- Right CCA: 14.7 ----- Right ICA: 17.4 ----- Right ECA: 12.8 LEFT: Peak Systolic Velocity (PSV) cm/sec ----- Left CCA: 62.5 ----- Left ICA: 82.3 ----- Left ECA: 76.8 ICA/CCA ratio: 1.3 LEFT: End Diastole cm/sec ----- Left CCA: 17.5 ----- Left ICA: 24.1 ----- Left ECA: 10.9 VERTEBRALS (direction of flow): Right Vertebral: Antegrade Left Vertebral: Antegrade Rhythm: Arrhythmia [employer] TECHNICIAN NOTES: No significant stenosis seen IMPRESSION: Less than 50% stenosis with bilateral carotid bifurcations. Criteria for Assigning % of Stenosis / Diameter reduction (Estimation based on the indirect measurements of the internal carotid artery velocities (ICA PSV). 1. Normal (no stenosis)=ICA PSV < 125 cm/s: ratio < 2.0: ICA EDV<40 cm/s. 2. Less than 50% stenosis=ICA PSV < 125 cm/s: ratio < 2.0: ICA EDV<40 cm/s. 3. 50 to 69% stenosis=ICA PSV of 125 to 230 cm/s: ration 2.0 ? 4.0: ICA EDV 40-100 cm/s. 4. Greater than 70% stenosis to near occlusion= ICA PSV > 230 cm/s: ratio > 4.0: ICA EDV > 100 cm/s. 5. Near occlusion= ICA PSV velocities may be low or undetectable: variable ratio and ICA EDV. 6. Total occlusion=unable to detect flow.
== END | disposition home or self-care (01) ==
LOC: RADUSWWP 09:00
PROVIDERS: ATTEND Family Medicine
DX: I65.23 Occlusion and stenosis of bilateral carotid arteries (principal)
CPT/HCPCS: 93880

== ENCOUNTER 2024-05-19 00:07 | Emergency (ER) | payer OTHER ==
[2024-05-19 00:23] VITALS: TEMP 98.6
--- NOTE | 2024-05-19 00:32 | ED ---
Dizziness HPI - General Chief Complaint: Syncope Stated Complaint: Syncope Time Seen by Provider: 05/19/24 00:16 Source: patient, EMS, RN notes reviewed, old records reviewed Mode of arrival: EMS - History of Present Illness Initial Comments: This is a 78-year-old male with a syncopal event falling and hitting his head positive alcohol no chest pain mild headache no other complaints patient is a significantly poor historian secondary to alcohol intoxication MD Complaint: dizziness, near syncope (Syncope) -: days(s) Timing: sudden onset, constant Description: sense of movement History of Same: No History of Trauma: No Severity: severe Improves With: nothing Worsens With: nothing Associated Symptoms: syncope, weakness - Related Data Home Medications Medication Instructions Recorded Confirmed Aspirin EC [Ecotrin Low Dose] 81 mg PO DAILY 01/03/15 01/03/15 Multivitamin [Men's Multi-Vitamin] 1 each PO DAILY 01/03/15 01/03/15 Pravastatin Sodium [Pravachol] 80 mg PO DAILY 01/03/15 01/03/15 atenoloL [Tenormin] 25 mg PO DAILY 01/03/15 01/03/15 lisinopriL [Zestril] 10 mg PO DAILY 01/03/15 01/03/15 Previous Rx's Medication Instructions Recorded LORazepam [Ativan] 0.5 mg PO TID PRN #30 tab 01/04/15 Rivaroxaban [Xarelto] 20 mg PO W/SUPPER #30 tab 01/04/15 Lidocaine 5% Patch [Lidoderm 5% 1 patch TOPICAL DAILY PRN #30 patch 10/10/23 Patch] methocarbamoL [Robaxin-750] 1,500 mg PO TID PRN #30 tab 10/10/23 Allergies Allergy/AdvReac Type Severity Reaction Status Date / Time Sulfa (Sulfonamide AdvReac Rash/Hives Verified 10/10/23 09:48 Antibiotics) Review of Systems ROS Statement: Those systems with pertinent positive or pertinent negative responses have been documented in the HPI. ROS Other: All systems not noted in ROS Statement are negative. Past Medical History Past Medical History: Hyperlipidemia, Hypertension Additional Past Medical History / Comment(s): 01-03-15 [place] AFIB, KIDNEY STONES,DIVERTICULITIS, NOSE BROKEN TWICE, COLLARBONE BROKEN X2, LT HAND BROKEN, BOWEL OBSTRUCTION. STENT LAD. History of Any Multi-Drug Resistant Organisms: None Reported Past Surgical History: Adenoidectomy, Heart Catheterization With Stent, Tonsillectomy Additional Past Surgical History / Comment(s): LT KIDNEY INURY(TORE KIDNEY IN FALL) Past Anesthesia/Blood Transfusion Reactions: No Reported Reaction Date of Last Stent Placement:: 06-05-01 Past Psychological History: No Psychological Hx Reported Smoking Status: Never smoker Past Alcohol Use History: Daily Past Drug Use History: None Reported - Past Family History Father Additional Family Medical History / Comment(s): AT AGE 88 FROM [place] Mother Family Medical History: Cancer, Diabetes Mellitus Additional Family Medical History / Comment(s): COLON CANCER, PACEMAKER, FALLS BROKE VERTEBRE IN NECK General Exam General appearance: alert, in no apparent distress Head exam: Present: atraumatic, normocephalic, normal inspection Eye exam: Present: normal appearance, PERRL, EOMI. Absent: scleral icterus, conjunctival injection, periorbital swelling ENT exam: Present: normal exam, mucous membranes moist Neck exam: Present: normal inspection. Absent: tenderness, meningismus, lymphadenopathy Respiratory exam: Present: normal lung sounds bilaterally. Absent: respiratory distress, wheezes, rales, rhonchi, stridor Cardiovascular Exam: Present: regular rate, normal rhythm, normal heart sounds. Absent: systolic murmur, diastolic murmur, rubs, gallop, clicks GI/Abdominal exam: Present: soft, normal bowel sounds. Absent: distended, t enderness, guarding, rebound, rigid Extremities exam: Present: normal inspection, full ROM, normal capillary refill. Absent: tenderness, pedal edema, joint swelling, calf tenderness Back exam: Present: normal inspection Neurological exam: Present: alert, oriented X3, CN II-XII intact Psychiatric exam: Present: normal affect, normal mood Skin exam: Present: warm, dry, intact, normal color. Absent: rash Course Vital Signs 05/19/24 05/19/24 05/19/24 00:13 01:45 03:11 Temperature 98.6 F Pulse Rate 52 L 55 L 61 Respiratory 18 18 18 Rate Blood Pressure 128/76 97/58 87/69 O2 Sat by Pulse 97 92 L Oximetry 05/19/24 03:55 Temperature Pulse Rate 56 L Respiratory 17 Rate Blood Pressure 104/71 O2 Sat by Pulse 92 L Oximetry - Reevaluation(s) Reevaluation #1: 05/19/24 00:31 Medical records reviewed Reevaluation #2: 05/19/24 00:31 Patient symptoms unchanged Reevaluation #3: 05/19/24 02:29 Recurrent syncopal event Reevaluation #4: Was pt. sent in by a medical professional or institution (, [facility], [facility], urgent care, hospital, or fpc...) When possible be specific @ -no Did you speak to anyone other than the patient for history (EMS, parent, family, police, friend...)? What history was obtained from this source @ -no Did you review nursing and triage notes (agree or disagree)? Why? @ -agree Are old charts reviewed (outside hosp., previous admission, EMS record, old EKG, old radiological studies, urgent care reports/EKG's, fpc records)? Report findings @ -yes Differential Diagnosis (chest pain, altered mental status, abdominal pain women, abdominal pain men, vaginal bleeding, weakness, fever, dyspnea, syncope, headache, dizziness, GI bleed, back pain, seizure, CVA, palpatations, mental health, musculoskeletal)? @ -prior EKG interpreted by me (3pts min.). @ -yes X-rays interpreted by me (1pt min.). @ -yes negative for acute disease CT interpreted by me (1pt min.). @ -yes for subarachnoid hemorrhage U/S interpreted by me (1pt. min.). @ -no What testing was considered but not performed or refused? (CT, X-rays, U/S, labs)? Why? @ -none What meds were considered but not given or refused? Why? @ -none Did you discuss the management of the patient with other professionals (professionals i.e. , [facility], [facility] [employer] [facility], lab, RT, psych nurse, group social worker, crop picker, teacher, ski patrol officer, supportive employment case manager)? Give summary @ -no Was smoking cessation discussed for >3mins.? @ -no Was critical care preformed (if so, how long)? @ -yes31 Were there social determinants of health that impacted care today? How? (Homelessness, low income, unemployed, alcoholism, drug addiction, transportation, low edu. Level, literacy, decrease access to med. care, retirement, rehab)? @ -none Was there de-escalation of care discussed even if they declined (Discuss DNR or withdrawal of care, Hospice)? DNR status @ -no What co-morbidities impacted this encounter? (DM, HTN, Smoking, COPD, CAD, Cancer, CVA, ARF, Chemo, Hep., AIDS, mental health diagnosis, sleep apnea, morbid obesity)? @ -none Was patient admitted / discharged? Hospital course, mention meds given and route, prescriptions, significant lab abnormalities, going to OR and other pert inent info. @ - 78 male to ER who took a syncopal event with positive alcohol intoxication and fall. Positive subarachnoid hemorrhage . [facility] Undiagnosed new problem with uncertain prognosis? @ -no Drug Therapy requiring intensive monitoring for toxicity (Heparin, Nitro, Insulin, Cardizem)? @ -no Were any procedures done? @ -no Diagnosis/symptom? @ - traumatic fall with subarachnoid hemorrhage Acute, or Chronic, or Acute on Chronic? @ -Acute Uncomplicated (without systemic symptoms) or Complicated (systemic symptoms)? @ -Complicated Side effects of treatment? @ -no Exacerbation, Progression, or Severe Exacerbation? @ -exacerbation Poses a threat to life or bodily function? How? (Chest pain, USA, IA, pneumonia, PE, COPD, DKA, ARF, appy, cholecystitis, CVA, Diverticulitis, Homicidal, Suicidal, threat to staff... and all critical care pts) @ -yes significant traumatic injury Reevaluation #5: Differential Syncope: Valvular disease, hypertrophic cardiomyopathy, pulmonary embolism, tamponade, tachycardia, bradycardia, IA, hypovolemia, hemorrhage, dissection, anemia, intracranial hemorrhage, seizure, hypoglycemia, carbon monoxide poisoning, this is not meant to be an all-inclusive list. - Consultations Consultation #1: [facility] agrees to transfer EKG Findings - EKG Comments: EKG Findings:: EKG is sinus bradycardia 54 MI 173 QRS 100 QTc 435 - EKG Results: EKG: interpreted by [facility]HR[facility] Medical Decision Making - Medical Decision Making 78 male to ER who took a syncopal event with positive alcohol intoxication and fall. Positive subarachnoid hemorrhage - Lab Data Result diagrams: 05/19/24 00:59 05/19/24 00:59 Lab Results 05/19/24 05/19/24 05/19/24 Range/Units 00:59 00:59 00:59 WBC 8.2 (3.8-10.6) k/uL RBC 4.21 L (4.30-5.90) m/uL Hgb 13.9 (13.0-17.5) gm/dL Hct 41.3 (39.0-53.0) % MCV 98.1 (80.0-100.0) fL MCH 32.9 (25.0-35.0) pg MCHC 33.6 (31.0-37.0) g/dL RDW 13.2 (11.5-15.5) % Plt Count 111 L (150-450) k/uL MPV 10.4 Neutrophils % 76 % Lymphocytes % 13 % Monocytes % 6 % Eosinophils % 2 % Basophils % 0 % Neutrophils # 6.2 (1.3-7.7) k/uL Lymphocytes # 1.1 (1.0-4.8) k/uL Monocytes # 0.5 (0-1.0) k/uL Eosinophils # 0.2 (0-0.7) k/uL Basophils # 0.0 (0-0.2) k/uL PT 10.9 (10.0-12.5) sec INR 1.0 (<1.2) APTT 22.9 (22.0-30.0) sec D-Dimer 25.78 H (<0.60) mg/L FEU Sodium 140 (137-145) mmol/L Potassium 3.9 (3.5-5.1) mmol/L Chloride 109 H (98-107) mmol/L Carbon Dioxide 20 L (22-30) mmol/L Anion Gap 11 mmol/L BUN 22 H (9-20) mg/dL Creatinine 1.10 (0.66-1.25) mg/dL Est GFR (CKD-EPI)AfAm 75 (>60 ml/min/1.73 sqM) Est GFR (CKD-EPI)NonAf 65 (>60 ml/min/1.73 sqM) Glucose 97 (74-99) mg/dL Calcium 9.2 (8.4-10.2) mg/dL Magnesium 2.1 (1.6-2.3) mg/dL Total Bilirubin 0.4 (0.2-1.3) mg/dL AST 41 (17-59) U/L ALT 37 (4-49) U/L Alkaline Phosphatase 66 (38-126) U/L Troponin I (0.000-0.034) ng/mL Total Protein 7.1 (6.3-8.2) g/dL Albumin 4.3 (3.5-5.0) g/dL Serum Alcohol 246 H* mg/dL 05/19/24 Range/Units 00:59 WBC (3.8-10.6) k/uL RBC (4.30-5.90) m/uL Hgb (13.0-17.5) gm/dL Hct (39.0-53.0) % MCV (80.0-100.0) fL MCH (25.0-35.0) pg MCHC (31.0-37.0) g/dL RDW (11.5-15.5) % Plt Count (150-450) k/uL MPV Neutrophils % % Lymphocytes % % Monocytes % % Eosinophils % % Basophils % % Neutrophils # (1.3-7.7) k/uL Lymphocytes # (1.0-4.8) k/uL Monocytes # (0-1.0) k/uL Eosinophils # (0-0.7) k/uL Basophils # (0-0.2) k/uL PT (10.0-12.5) sec INR (<1.2) APTT (22.0-30.0) sec D-Dimer (<0.60) mg/L FEU Sodium (137-145) mmol/L Potassium (3.5-5.1) mmol/L Chloride (98-107) mmol/L Carbon Dioxide (22-30) mmol/L Anion Gap mmol/L BUN (9-20) mg/dL Creatinine (0.66-1.25) mg/dL Est GFR (CKD-EPI)AfAm (>60 ml/min/1.73 sqM) Est GFR (CKD-EPI)NonAf (>60 ml/min/1.73 sqM) Glucose (74-99) mg/dL Calcium (8.4-10.2) mg/dL Magnesium (1.6-2.3) mg/dL Total Bilirubin (0.2-1.3) mg/dL AST (17-59) U/L ALT (4-49) U/L Alkaline Phosphatase (38-126) U/L Troponin I <0.012 (0.000-0.034) ng/mL Total Protein (6.3-8.2) g/dL Albumin (3.5-5.0) g/dL Serum Alcohol mg/dL - Radiology Data Radiology results: report reviewed (Chest x-ray x-ray pelvis CT brain C-spine positive for subarachnoid hemorrhage, CT angio chest), image reviewed Critical Care Time Critical Care Time: Yes Total Critical Care Time: 31 Disposition Clinical Impression: Syncope, Alcohol intoxication, Fall, Subarachnoid hemorrhage Disposition: OTHER INSTITUTION NOT DEFINED Condition: Serious Is patient prescribed a controlled substance at d/c from ED?: No Referrals: Anna Gaines, PAC [Family Provider] - 1-2 days Time of Disposition: 02:30 - Out of Hospital Transfer - Req. Specs Out of Hospital Transfer - Requested Specifics: Other Emergency Center ([facility])
[2024-05-19] MEDS: SODIUM CHLORIDE 0.9% 1,000 ML IV STA ×2 (00:54→00:55)
[2024-05-19] MEDS: SODIUM CHLORIDE 0.9% 1,000 ML IV SCH (00:55)
[2024-05-19] MEDS: SODIUM CHLORIDE 0.9% 500 ML 500 ML IV STA (00:55)
[2024-05-19 01:15] LABS: Basophils % (A) 0 %; Eosinophils # (A) 0.2 k/uL (0-0.7); Eosinophils % (A) 2 %; HCT 41.3 % (39.0-53.0); HGB 13.9 gm/dL (13.0-17.5); Lymphocytes # (A) 1.1 k/uL (1.0-4.8); Lymphocytes % (A) 13 %; MCH 32.9 pg (25.0-35.0); MCHC 33.6 g/dL (31.0-37.0); MCV 98.1 fL (80.0-100.0); Mean Platelet Volume 10.4; Monocytes # (A) 0.5 k/uL (0-1.0); Monocytes % (A) 6 %; Neutrophils # (A) 6.2 k/uL (1.3-7.7); Neutrophils % (A) 76 %; Platelet Count 111 k/uL (150-450); RBC 4.21 m/uL (4.30-5.90); RDW 13.2 % (11.5-15.5); WBC 8.2 k/uL (3.8-10.6)
[2024-05-19 01:37] LABS: Partial Thromboplastin Time 22.9 sec (22.0-30.0); Prothrombin Time 10.9 sec (10.0-12.5)
--- NOTE | 2024-05-19 02:03 | XR ---
EXAM: XR Chest, 1 View CLINICAL HISTORY: ITS.REASON XR Reason: cp TECHNIQUE: Frontal view of the chest. COMPARISON: No relevant prior studies available. FINDINGS: Lungs: No consolidation or mass. Mildly prominent interstitial markings. Pleural space: No acute findings. Heart: Mild cardiomegaly. Bones/joints: No acute findings. IMPRESSION: Mildly prominent interstitial markings.
[2024-05-19 02:07] LABS: ALT 37 U/L (4-49); AST 41 U/L (17-59); African American GFR (CKD) 75 (>60 ml/min/1.73 sqM); Albumin 4.3 g/dL (3.5-5.0); Alkaline Phosphatase 66 U/L (38-126); Anion Gap 11 mmol/L; Blood Urea Nitrogen 22 mg/dL (9-20); Calcium 9.2 mg/dL (8.4-10.2); Carbon Dioxide 20 mmol/L (22-30); Chloride 109 mmol/L (98-107); Glucose 97 mg/dL (74-99); Magnesium 2.1 mg/dL (1.6-2.3); Non-African American GFR(CKD) 65 (>60 ml/min/1.73 sqM); Potassium 3.9 mmol/L (3.5-5.1); Sodium 140 mmol/L (137-145); Total Bilirubin 0.4 mg/dL (0.2-1.3); Total Protein 7.1 g/dL (6.3-8.2)
--- NOTE | 2024-05-19 02:09 | XR ---
EXAM: XR Pelvis, 1 or 2 Views CLINICAL HISTORY: ITS.REASON XR Reason: cp TECHNIQUE: Frontal view of the pelvis. COMPARISON: No previous studies. FINDINGS: Bones/joints: Mild osteoarthritic changes about the hip joints. The bony pelvis is unremarkable per. Moderate degenerative disc disease of the mid to lower lumbar spine. No acute fracture. No dislocation. Soft tissues: Unremarkable. Other findings: Pelvic fluid bolus are noted. Nonobstructing right renal calculi the largest of which measures 0.8 cm in extent. IMPRESSION: 1. Mild osteoarthritic changes about the hip joint. 2. Nonobstructing right renal calculi.
--- NOTE | 2024-05-19 02:24 | CT ---
EXAM: CT Head Without Intravenous Contrast CLINICAL HISTORY: ITS.REASON CT Reason: cp TECHNIQUE: Axial computed tomography images of the head/brain without intravenous contrast. CTDI is 45.2 mGy and DLP is 1072 mGy-cm. This CT exam was performed using one or more of the following dose reduction techniques: automated exposure control, adjustment of the mA and/or kV according to patient size, and/or use of iterative reconstruction technique. COMPARISON: No relevant prior studies available. FINDINGS: Brain: There is a trace amount of acute subarachnoid blood in the right temporal lobe sulci. There is a trace amount of subarachnoid blood in the left frontal lobe sulci. No significant white matter disease. No edema. Ventricles: Unremarkable. No ventriculomegaly. Bones/joints: Unremarkable. No acute fracture. Soft tissues: Unremarkable. Sinuses: Unremarkable as visualized. No acute sinusitis. Mastoid air cells: Unremarkable as visualized. No mastoid effusion. IMPRESSION: There is a trace amount of acute subarachnoid blood in the right temporal lobe and left frontal lobe sulci. Recommend short-term interval follow- up to evaluate for stability. EXAM: CT Cervical Spine Without Intravenous Contrast CLINICAL HISTORY: ITS.REASON CT Reason: cp TECHNIQUE: Axial computed tomography images of the cervical spine without intravenous contrast. CTDI is 10.4 mGy and DLP is 318.2 mGy-cm. This CT exam was performed using one or more of the following dose reduction techniques: automated exposure control, adjustment of the mA and/or kV according to patient size, and/or use of iterative reconstruction technique. COMPARISON: No relevant prior studies available. FINDINGS: Vertebrae: There is a minimally displaced left C2 transverse process fracture. Discs/spinal canal/neural foramina: No acute findings. No spinal canal stenosis. Soft tissues: Unremarkable. IMPRESSION: There is a minimally displaced left C2 transverse process fracture. <MYCVCSECTION> Communications: 05/19/24 02:24 Call Doctor Regarding Above results, called Dr. Fierro on 05/19 02:24 (-04:00)
[2024-05-19 02:25] LABS: Alcohol 246 mg/dL
--- NOTE | 2024-05-19 02:33 | CT ---
EXAM: CT Angiography Chest With Intravenous Contrast CLINICAL HISTORY: ITS.REASON CT Reason: pe TECHNIQUE: Axial computed tomographic angiography images of the chest with intravenous contrast. CTDI is 23 mGy and DLP is 365.8 mGy-cm. This CT exam was performed using one or more of the following dose reduction techniques: automated exposure control, adjustment of the mA and/or kV according to patient size, and/or use of iterative reconstruction technique. MIP reconstructed images were created and reviewed. COMPARISON: Chest x-ray of 05/19/2024. FINDINGS: Pulmonary arteries: Central pulmonary arteries are unremarkable. No pulmonary embolism. Aorta: Atherosclerotic disease of the thoracic aorta is noted. No thoracic aortic aneurysm. Lungs: Airway is normal. Minimal scarring and subsegmental atelectasis noted posteriorly in the mid lower lung zones. No mass. Pleural space: Unremarkable. No significant effusion. No pneumothorax. Heart: Cardiomegaly. No significant pericardial effusion. No evidence of RV dysfunction. Mediastinum: Small hiatal hernia and distal esophagitis. Thyroid: Thyroid gland is unremarkable. Bones/joints: No acute fracture. No dislocation. Soft tissues: Unremarkable. Lymph nodes: Unremarkable. No enlarged lymph nodes. Liver: Fatty liver. Adrenals: 1.5 cm probable right adrenal adenoma. Kidneys and ureters: Cluster of nonobstructing Right upper pole region of the left kidney. IMPRESSION: 1. No central or peripheral pulmonary emboli detected. 2. Atherosclerotic disease of the thoracic aorta. 3. Cardiomegaly. 4. Fatty liver. 5. Probable right adrenal adenoma. 6. Nonobstructing left renal calculi.
[2024-05-19 03:56] VITALS: BP 104/71; PULSE 56; RESP 17
== END 2024-05-19 04:09 | disposition other institution (70) ==
LOC: EC 00:07
CPT/HCPCS: 36415; 70450; 71045; 71275; 72125; 72170; 80053; 80320; 83735; 84484; 85025; 85379; 85610; 85730; 93005; 96360; 96361; 99291

== ENCOUNTER 2024-06-24 11:14 | Emergency (ER) | payer OTHER ==
[2024-06-24 11:23] VITALS: TEMP 98.6
[2024-06-24 11:31] LABS: Glucose,Whole Blood 90 mg/dL (70-110)
--- NOTE | 2024-06-24 11:44 | ED ---
General Adult HPI - General Chief complaint: Neuro Symptoms/Deficit Stated complaint: Possible stroke, previous fall and head injury Time Seen by Provider: 06/24/24 11:30 Source: patient, RN notes reviewed, old records reviewed Mode of arrival: ambulatory Limitations: no limitations - History of Present Illness Initial comments: This is a 78-year-old male who presents to the emergency department complaining of falling a week ago and cutting open his head on the right temporal region. Patient states he bled quite extensively. Patient states he has been having a problem for at least a year with syncopal episodes and that is what happened last week when he fell he had a syncopal episode. Patient states he does not know when his last tetanus was. Patient did not seek help after the fall even though he had a large laceration. Patient's states that last night he was a little confused and then he seemed to get better but this morning when he woke up he was very confused and complained of some tingling the left arm. Patient denies any neck pain. Patient states he has bilateral pain in the head in the temporal regions. Patient denies any other injury any extremity injury. Patient states he has had a intracranial hemorrhage in the past. Patient is not on any blood thinners. Currently patient is not confused and he is talking no rmally except slowly according to the . - Related Data Home Medications Medication Instructions Recorded Confirmed Aspirin EC [Ecotrin Low Dose] 81 mg PO DAILY 01/03/15 01/03/15 Multivitamin [Men's Multi-Vitamin] 1 each PO DAILY 01/03/15 01/03/15 Pravastatin Sodium [Pravachol] 80 mg PO DAILY 01/03/15 01/03/15 atenoloL [Tenormin] 25 mg PO DAILY 01/03/15 01/03/15 lisinopriL [Zestril] 10 mg PO DAILY 01/03/15 01/03/15 Previous Rx's Medication Instructions Recorded LORazepam [Ativan] 0.5 mg PO TID PRN #30 tab 01/04/15 Rivaroxaban [Xarelto] 20 mg PO W/SUPPER #30 tab 01/04/15 Lidocaine 5% Patch [Lidoderm 5% 1 patch TOPICAL DAILY PRN #30 patch 10/10/23 Patch] methocarbamoL [Robaxin-750] 1,500 mg PO TID PRN #30 tab 10/10/23 Allergies Allergy/AdvReac Type Severity Reaction Status Date / Time Sulfa (Sulfonamide AdvReac Rash/Hives Verified 06/24/24 11:23 Antibiotics) Review of Systems ROS Statement: Those systems with pertinent positive or pertinent negative responses have been documented in the HPI. ROS Other: All systems not noted in ROS Statement are negative. Past Medical History Past Medical History: Hyperlipidemia, Hypertension Additional Past Medical History / Comment(s): 01-03-15 NEW ONSET AFIB, KIDNEY STONES,DIVERTICULITIS, NOSE BROKEN TWICE, COLLARBONE BROKEN X2, LT HAND BROKEN, BOWEL OBSTRUCTION. STENT LAD. History of Any Multi-Drug Resistant Organisms: None Reported Past Surgical History: Adenoidectomy, Heart Catheterization With Stent, Tonsillectomy Additional Past Surgical History / Comment(s): LT KIDNEY INURY(TORE KIDNEY IN FALL) Past Anesthesia/Blood Transfusion Reactions: No Reported Reaction Date of Last Stent Placement:: 06-05-01 Past Psychological History: No Psychological Hx Reported Smoking Status: Never smoker Past Alcohol Use History: Daily Past Drug Use History: None Reported - Past Family History Father Additional Family Medical History / Comment(s): AT AGE 88 FROM [place] Mother Family Medical History: Cancer, Diabetes Mellitus Additional Family Medical History / Comment(s): COLON CANCER, PACEMAKER, FALLS BROKE VERTEBRE IN NECK General Exam - General Exam Comments Initial Comments: GENERAL: Patient is well-developed and well-nourished. Patient is nontoxic and well- hydrated and is in mild distress. ENT: Neck is soft and supple. No significant lymphadenopathy is noted. Oropharynx is clear. Moist mucous membranes. Neck has full range of motion without elici ting any pain. EYES: The sclera were anicteric and conjunctiva were pink and moist. Extraocular movements were intact and pupils were equal round and reactive to light. Eyelids were unremarkable. PULMONARY: Unlabored respirations. Good breath sounds bilaterally. No audible rales rhonchi or wheezing was noted. CARDIOVASCULAR: There is a regular rate and rhythm without any murmurs gallops or rubs. ABDOMEN: Soft and nontender with normal bowel sounds. SKIN: Skin is clear with no lesions or rashes and otherwise unremarkable. NEUROLOGIC: Patient is alert and oriented x3. Cranial nerves II through XII are grossly intact. Motor and sensory are also intact. Speech is clear and accurate but slow. Symmetrical smile. NIH currently is 0 MUSCULOSKELETAL: Normal extremities with adequate strength and full range of motion. No lower extremity swelling or edema. No calf tenderness. LYMPHATICS: No significant lymphadenopathy is noted PSYCHIATRIC: Normal psychiatric evaluation. Limitations: no limitations Course Vital Signs 06/24/24 06/24/24 11:18 11:36 Temperature 98.6 F Pulse Rate 59 L 56 L Respiratory 20 18 Rate Blood Pressure 134/83 152/85 O2 Sat by Pulse 99 Oximetry Medical Decision Making - Medical Decision Making EKG is interpreted by myself. EKG shows sinus bradycardia with an occasional PAC at 57 bpm MS interval 256 QRS is 87 QT interval is 426 QTc is 419. Patient's EKG shows no ST segment ovation or depression Was pt. sent in by a medical professional or institution (ZENOBIA Schultz, SERVICE WORKER, urgent care, hospital, or [facility]...) When possible be specific @ -No Did you speak to anyone other than the patient for history (EMS, parent, family, police, friend...)? What history was obtained from this source @ -No Did you review nursing and triage notes (agree or disagree)? Why? @ -I reviewed and agree with nursing and triage notes Were old charts reviewed (outside hosp., previous admission, EMS record, old EK G, old radiological studies, urgent care reports/EKG's, [facility] records)? Report findings @ -No old charts were reviewed Differential Diagnosis? @ -Skull fracture, subdural hematoma, intraparenchymal hemorrhage, subarachnoid hemorrhage, epidural, this is not an all-inclusive list EKG interpreted by me (3pts min.). @ -As above X-rays interpreted by me (1pt min.). @ -None done CT interpreted by me (1pt min.). @ -CT of the brain shows a left-sided subdural without any mass effect CT of the C-spine shows no acute abnormality U/S interpreted by me (1pt. min.). @ -None done What testing was considered but not performed or refused? (CT, X-rays, U/S, labs)? Why? @ -None What meds were considered but not given or refused? Why? @ -None Did you discuss the management of the patient with other professionals (professionals i.e. Dr., PA, SERVICE WORKER, lab, RT, psych nurse, social media job titles, hand candy molder, teacher, executive officer special warfare team, onsite case manager)? Give summary @ -I spoke with [facility] and they agreed to accept the patient on transfer Was smoking cessation discussed for >3mins.? @ -No Was critical care preformed (if so, how long)? @ -35 minutes Were there social determinants of health that impacted care today? How? (Homelessness, low income, unemployed, alcoholism, drug addiction, transportation, low edu. Level, literacy, decrease access to med. care, nursing home, rehab)? @ -No Was there de-escalation of care discussed even if they declined (Discuss DNR or withdrawal of care, Hospice)? DNR status @ -No What co-morbidities impacted this encounter? (DM, HTN, Smoking, COPD, CAD, Cancer, CVA, ARF, Chemo, Hep., AIDS, mental health diagnosis, sleep apnea, morbid obesity)? @ -None Was patient admitted / discharged? Hospital course, mention meds given and route, prescriptions, significant lab abnormalities, going to OR and other pertinent info. @ -Patient was not confused while in the emergency department but he does have a subdural. Patient did receive a tetanus while emergency department. Patient will be transferred to [facility] Undiagnosed new problem with uncertain prognosis? @ -No Drug Therapy requiring intensive monitoring for toxicity (Heparin, Nitro, Insulin, Cardizem)? @ -No Were any procedures done? @ -No Diagnosis/symptom? @ -Subdural hematoma Acute, or Chronic, or Acute on Chronic? @ -Acute Uncomplicated (without systemic symptoms) or Complicated (systemic symptoms)? @ -Complicated Side effects of treatment? @ -No Exacerbation, Progression, or Severe Exacerbation? @ -No Poses a threat to life or bodily function? How? (Chest pain, [place], VA, pneumonia, PE, COPD, DKA, ARF, appy, cholecystitis, CVA, Diverticulitis, Homicidal, Suicidal, threat to staff... and all critical care pts) @ -Yes this can lead to midline shift and possible herniation and - Lab Data Result diagrams: 06/24/24 11:42 06/24/24 11:42 Lab Results 06/24/24 06/24/24 06/24/24 Range/Units 11:30 11:42 11:42 WBC 6.0 (3.8-10.6) k/uL RBC 4.39 (4.30-5.90) m/uL Hgb 13.7 (13.0-17.5) gm/dL Hct 42.0 (39.0-53.0) % MCV 95.7 (80.0-100.0) fL MCH 31.2 (25.0-35.0) pg MCHC 32.6 (31.0-37.0) g/dL RDW 12.6 (11.5-15.5) % Plt Count 160 (150-450) k/uL MPV 9.6 Neutrophils % 73 % Lymphocytes % 15 % Monocytes % 9 % Eosinophils % 2 % Basophils % 0 % Neutrophils # 4.4 (1.3-7.7) k/uL Lymphocytes # 0.9 L (1.0-4.8) k/uL Monocytes # 0.5 (0-1.0) k/uL Eosinophils # 0.1 (0-0.7) k/uL Basophils # 0.0 (0-0.2) k/uL PT 11.2 (10.0-12.5) sec INR 1.0 (<1.2) APTT 24.1 (22.0-30.0) sec Sodium (137-145) mmol/L Potassium (3.5-5.1) mmol/L Chloride (98-107) mmol/L Carbon Dioxide (22-30) mmol/L Anion Gap mmol/L BUN (9-20) mg/dL Creatinine (0.66-1.25) mg/dL Est GFR (CKD-EPI)AfAm (>60 ml/min/1.73 sqM) Est GFR (CKD-EPI)NonAf (>60 ml/min/1.73 sqM) Glucose (74-99) mg/dL POC Glucose (mg/dL) 90 (70-110) mg/dL POC Glu [employer] Janae Akins Calcium (8.4-10.2) mg/dL Total Bilirubin (0.2-1.3) mg/dL AST (17-59) U/L ALT (4-49) U/L Alkaline Phosphatase (38-126) U/L Creatine Kinase (55-170) U/L Troponin I (0.000-0.034) ng/mL Total Protein (6.3-8.2) g/dL Albumin (3.5-5.0) g/dL 06/24/24 06/24/24 Range/Units 11:42 11:42 WBC (3.8-10.6) k/uL RBC (4.30-5.90) m/uL Hgb (13.0-17.5) gm/dL Hct (39.0-53.0) % MCV (80.0-100.0) fL MCH (25.0-35.0) pg MCHC (31.0-37.0) g/dL RDW (11.5-15.5) % Plt Count (150-450) k/uL MPV Neutrophils % % Lymphocytes % % Monocytes % % Eosinophils % % Basophils % % Neutrophils # (1.3-7.7) k/uL Lymphocytes # (1.0-4.8) k/uL Monocytes # (0-1.0) k/uL Eosinophils # (0-0.7) k/uL Basophils # (0-0.2) k/uL PT (10.0-12.5) sec INR (<1.2) APTT (22.0-30.0) sec Sodium 137 (137-145) mmol/L Potassium 4.6 (3.5-5.1) mmol/L Chloride 105 (98-107) mmol/L Carbon Dioxide 23 (22-30) mmol/L Anion Gap 9 mmol/L BUN 12 (9-20) mg/dL Creatinine 1.29 H (0.66-1.25) mg/dL Est GFR (CKD-EPI)AfAm 62 (>60 ml/min/1.73 sqM) Est GFR (CKD-EPI)NonAf 54 (>60 ml/min/1.73 sqM) Glucose 98 (74-99) mg/dL POC Glucose (mg/dL) (70-110) mg/dL POC Glu [employer] ID Calcium 9.4 (8.4-10.2) mg/dL Total Bilirubin 0.8 (0.2-1.3) mg/dL AST 29 (17-59) U/L ALT 31 (4-49) U/L Alkaline Phosphatase 62 (38-126) U/L Creatine Kinase 47 L (55-170) U/L Troponin I <0.012 (0.000-0.034) ng/mL Total Protein 8.2 (6.3-8.2) g/dL Albumin 4.7 (3.5-5.0) g/dL Disposition Clinical Impression: Subdural hematoma Disposition: OTHER INSTITUTION NOT DEFINED Referrals: Neal Pham DO [Primary Care Provider] - 1-2 days Time of Disposition: 12:50 - Out of Hospital Transfer - Req. Specs Out of Hospital Transfer - Requested Specifics: Other Emergency Center ([facility])
[2024-06-24 11:55] LABS: Basophils % (A) 0 %; Eosinophils # (A) 0.1 k/uL (0-0.7); Eosinophils % (A) 2 %; HGB 13.7 gm/dL (13.0-17.5); Lymphocytes # (A) 0.9 k/uL (1.0-4.8); Lymphocytes % (A) 15 %; MCH 31.2 pg (25.0-35.0); MCHC 32.6 g/dL (31.0-37.0); MCV 95.7 fL (80.0-100.0); Mean Platelet Volume 9.6; Monocytes # (A) 0.5 k/uL (0-1.0); Monocytes % (A) 9 %; Neutrophils # (A) 4.4 k/uL (1.3-7.7); Neutrophils % (A) 73 %; Platelet Count 160 k/uL (150-450); RBC 4.39 m/uL (4.30-5.90); RDW 12.6 % (11.5-15.5)
[2024-06-24 12:02] LABS: Partial Thromboplastin Time 24.1 sec (22.0-30.0); Prothrombin Time 11.2 sec (10.0-12.5)
[2024-06-24 12:05] LABS: ALT 31 U/L (4-49); AST 29 U/L (17-59); African American GFR (CKD) 62 (>60 ml/min/1.73 sqM); Albumin 4.7 g/dL (3.5-5.0); Alkaline Phosphatase 62 U/L (38-126); Anion Gap 9 mmol/L; Blood Urea Nitrogen 12 mg/dL (9-20); Calcium 9.4 mg/dL (8.4-10.2); Carbon Dioxide 23 mmol/L (22-30); Chloride 105 mmol/L (98-107); Creatine Kinase 47 U/L (55-170); Glucose 98 mg/dL (74-99); Non-African American GFR(CKD) 54 (>60 ml/min/1.73 sqM); Potassium 4.6 mmol/L (3.5-5.1); Sodium 137 mmol/L (137-145); Total Bilirubin 0.8 mg/dL (0.2-1.3); Total Protein 8.2 g/dL (6.3-8.2)
--- NOTE | 2024-06-24 12:16 | CT ---
EXAMINATION TYPE: CT brain wo con DATE OF EXAM: 06/24/2024 12:03 PM COMPARISON: None. CLINICAL INDICATION: Male, 78 years old with history of Neuro deficit, acute, stroke suspected, pt fe ll a few days ago and hit his head laceration that is healing on right paraital, changes in speech st arting this morming TECHNIQUE: CT of the brain is performed utilizing 3 mm thick sections through the posterior fossa and 3 mm thick sections through the remaining calvarium. Study is performed within 24 hours of arrival to the hospital. Contrast used: mL of , (none if empty) CT DLP: 1139.4 mGycm, Automated exposure control for dose reduction was used. FINDINGS: There is a left subdural hematoma extending from the frontal region near the vertex to the parietal r egion. This has maximum depth of 1.4 cm. This may have some layering right. Patient's prior subarachn oid hemorrhage is not identified. Report called to emergency room physician by Dr. Santos by telepho ne at the time of interpretation. Patient fell approximately one week prior. Findings can be compatib le with subacute subdural hematoma No mass lesion is evident. No acute infarcts are evident. Some periventricular white matter hypodensity is present, likely on th e basis of chronic white matter ischemic changes. Ventricles and sulci are probably prominent for the patient age. Paranasal sinuses and mastoid air cells within the [id number] are clear. IMPRESSION: 1. 1.3 cm deep left subdural hematoma. No significant mass effect on the adjacent brain is evident. Finding could be related to a fall reported approximately 1 week prior. 2. Previous subarachnoid hemorrhage not identified. 3. Chronic appearing periventricular white matter ischemic changes with atrophy. [facility], , 06/24/2024 12:13 PM
[2024-06-24] MEDS: DIPH,PERTUS(ACELL)TETVAC-LF 0.5 ML VIAL IM ONE (12:17)
--- NOTE | 2024-06-24 12:51 | CT ---
EXAMINATION TYPE: CT cervical spine wo con DATE OF EXAM: 06/24/2024 12:42 PM COMPARISON: None. CLINICAL INDICATION: Male, 78 years old with history of Fall neck pain, FALL, HIT HEAD X FEW DAYS AGO , Lung cancer screening, History of tobacco use. TECHNIQUE: CT of the cervical spine is performed in the axial plane at 2 mm thick sections. Reconstr ucted images in the coronal, and sagittal plane are reviewed on the computer. Contrast used: mL of , (none if empty) Oral contrast used: (none if empty) CT DLP: 396.1 mGycm, Automated exposure control for dose reduction was used. FINDINGS: No acute fractures are evident. Vertebral body alignment is normal. There is loss of disc height throughout the cervical spine. Vacuum disc phenomenon is present at C7-T 1. Mild spondylosis is present Vertebral body heights are preserved. No spinal canal stenosis is evident Foraminal narrowing is present from uncovertebral joint hypertrophy at C3-4, C4-5 and to a mild degre e C5-6 and C6-7 IMPRESSION: 1. Moderate degenerative changes throughout the cervical spine discussed above. Loss of disc height and foraminal narrowing is present. 2. No acute osseous abnormality cervical spine [facility], , 06/24/2024 12:49 PM
[2024-06-24 13:08] VITALS: RESP 16
[2024-06-24 13:41] VITALS: BP 124/75; PULSE 55
== END 2024-06-24 13:42 | disposition other institution (70) ==
LOC: EC 11:14
DX: S00.03XA Contusion of scalp, initial encounter (principal); R00.1 Bradycardia, unspecified; Z88.2 Allergy status to sulfonamides; Z87.891 Personal history of nicotine dependence; Z23 Encounter for immunization; W19.XXXA Unspecified fall, initial encounter
CPT/HCPCS: 36415; 70450; 72125; 80053; 82550; 84484; 85025; 85610; 85730; 90471; 90715; 93005; 99291